=== PATIENT | female | born 1955 ===

== ENCOUNTER → 2018-04-12 | Outpatient (CLI) | payer OTHER ==
[2018-04-12 13:59] LABS: CHOL/HDL RATIO 4.1; Cholesterol 254 mg/dL (50-200); HDL Cholesterol 62 mg/dL (>39); LDL/HDL RATIO 2.5; Low Density Lipoprotein Chol 158 mg/dL (0-110); Triglycerides 171 mg/dL (30-160); Very Low Density Lipoprot Chol 34 mg/dL (6-32)
== END | disposition home or self-care (01) ==
LOC: LAB SHORT 13:10 → LAB 13:10
PROVIDERS: Hospitalist
DX: E78.5 Hyperlipidemia, unspecified (principal)
CPT/HCPCS: 80061

== ENCOUNTER → 2018-07-04 | Outpatient (CLI) | payer OTHER ==
[~2018-07-04] MED LIST: ATOR40TA
== END | disposition home or self-care (01) ==
LOC: PLD 08:35 → LAB SHORT 08:35
DX: L82.1 Other seborrheic keratosis (principal)
CPT/HCPCS: 88305